=== PATIENT | female | born 1930 | race Caucasian/White ===

== ENCOUNTER 2016-10-04 06:16 | Emergency (ER) | payer MEDICARE ==
[2016-12-29] MEDS ORDERED: XARELTO20 MG PO (17:24)
[2016-12-29] MEDS ORDERED: FERROUS SULFAT325 M2 PO (17:26)
[2016-12-29] MEDS ORDERED: WELLBUTRIN 75 M75 MG PO (17:33)
[2016-12-29] MEDS ORDERED: MAGNESIUM500 MG PO (17:34)
[2016-12-29] MEDS ORDERED: PROVENTIL HFA 61 INH INH (17:35)
[2016-12-29] MEDS ORDERED: NEXIUM40 MG PO (17:35)
[2016-12-29] MEDS ORDERED: ADVAIR 100-501 EACH INH (17:36)
[2017-01-02] MEDS ORDERED: CEFUROXIME500 MG PO (13:04)
[2017-01-02] MEDS ORDERED: VENOFER100 MG/5 M IV (13:04)
== END 2016-10-04 09:50 | disposition home or self-care (01) ==
LOC: ER1 06:16
DX: S82.435A Nondisplaced oblique fracture of shaft of left fibula, initial encounter for closed fracture (principal); J44.9 Chronic obstructive pulmonary disease, unspecified; Z88.1 Allergy status to other antibiotic agents; W19.XXXA Unspecified fall, initial encounter; Y92.009 Unspecified place in unspecified non-institutional (private) residence as the place of occurrence of the external cause
CPT/HCPCS: 29515; 73564; 73590; 73610; 73630; 99283